=== PATIENT | male | born 1955 | race Caucasian/White ===

== ENCOUNTER 2019-03-13 12:25 | Emergency (ER) | payer SELFPAY ==
[2019-03-13 12:39] VITALS: BP 157/80
[2019-03-13] MEDS ORDERED: KETOROLAC TROMETHAMINE 60 MG/2 ML SDV IM ONE (13:53)
--- NOTE | 2019-03-13 13:55 | ER Document Report ---
HPI - HPI Patient complains to provider of: hip pain Time Seen by Provider: 03/13/19 13:43 Onset: Other Onset/Duration: Persistent, Worse Severity: Severe Pain Level: 5 Context: This 63-year-old male presents emergency department with complaints of right hip pain. Patient gives history of [place] slaughters for over 50 years with bilateral knee pain. Reports his right hip has been hurting for the past 5 months. Reports for the past 5 days he has had pain to his right buttocks down his leg. He denies trauma. 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 Denies fever vomiting diarrhea. Patient reports he has been taking [id number] generic Tylenol for the pain without relief of symptoms. Associated Symptoms: None Exacerbated by: Walking Relieved by: Denies Similar symptoms previously: Yes Recently seen / treated by doctor: No Past Medical History - General Information source: Patient - Social History Smoking Status: Current Every Day Smoker Cigarette use (# per day): Yes Frequency of alcohol use: Occasional Drug Abuse: None Occupation: [employer] Family History: COPD Patient has suicidal ideation: No Patient has homicidal ideation: No - Medical History Medical History: Negative Surgical Hx: Negative Vertical Provider Document - CONSTITUTIONAL Agree With Documented VS: Yes Exam Limitations: No Limitations General Appearance: WD/WN, Mild Distress - Winces when walking - HEENT HEENT: Atraumatic, Normocephalic - NECK Neck: Normal Inspection, Supple - RESPIRATORY Respiratory: Breath Sounds Normal, No Respiratory Distress - CARDIOVASCULAR Cardiovascular: Regular Rate - GI/ABDOMEN Gastrointestinal: Abdomen Soft, Abdomen Non-Tender - BACK Back: Normal Inspection - No obvious deformity no vertebral tenderness complains of pain right above his right buttocks down his right buttock to the back of his leg. No erythema no swelling no warmth - MUSCULOSKELETAL/EXTREMETIES Musculoskeletal/Extremeties: MAEW, FROM, Tender - Complains of right hip pain complains of right knee pain - NEURO Level of Consciousness: Awake, Alert, Appropriate Motor/Sensory: No Motor Deficit - DERM Integumentary: Warm, Dry Course - Re-evaluation Re-evalutation: 03/13/19 13:57 Patient presents emergency department with right-sided hip pain that starts right above his right buttocks through his buttocks and down his right leg. Also reports he has [place] all his life and is hurting more. Reports he is not been to the hospital in over 50 years. 03/13/19 15:26 Hip/Pelvis X-Ray 03/13/19 13:53 IMPRESSION: No acute osseous abnormality of the right hip. Knee X-Ray 03/13/19 13:53 IMPRESSION: Mild medial compartment chondrocalcinosis, a finding typically seen with calcium pyrophosphate deposition disease (CPPD). X-rays negative for acute injury. Patient instructed on chondrocalcinosis. Instructed on muscle relaxers ibuprofen follow-up with orthopedics. Patient reports Toradol helping his pain. He was instructed on the importance of follow-up with orthopedics, return to the ER for concerns. He verbalized understanding to all instructions. - Vital Signs Vital signs: Temp Pulse Resp BP Pulse Ox 90 16 157/80 H 97 03/13/19 12:37 03/13/19 12:37 03/13/19 12:37 03/13/19 12:37 - Diagnostic Test Radiology reviewed: Image reviewed, Reports reviewed Discharge - Discharge Clinical Impression: Right hip pain Sciatica Qualifiers: Laterality: right Qualified Code(s): M54.31 - Sciatica, right side Condition: Stable Disposition: HOME, SELF-CARE Instructions: Ice Packs ([facility]), Muscle Relaxers ([facility]), Sciatica ([facility]), Steroid Medication Injection, Toradol Injection ([facility]) Additional Instructions: *You have been evaluated for right hip and knee pain Your x-ray does not show an acute fracture The x-ray does show chondrocalcinosis, to your right knee *Take medication as prescribed *Rest *Follow up with orthopedics within one week for recheck and evaluation *Return to ED for worsening condition, changes, needs Prescriptions: Cyclobenzaprine HCl [Flexeril 10 Mg Tablet] 10 mg PO TID #15 tablet Ibuprofen [Motrin 800 mg Tablet] 800 mg PO TID #15 tablet Forms: Return to Work Referrals: FABIAN ACOSTA MD [ACTIVE PROVISIONAL STAFF] - Follow up as needed MO ENRIQUEZ MD [NO LOCAL MD] - Follow up as needed [facility] [Provider Group] - Follow up as needed
--- NOTE | 2019-03-13 15:08 | RADIOLOGY REPORT (SQ) ---
EXAM DESCRIPTION: HIP RIGHT AP/LATERAL COMPLETED DATE/TIME: 03/13/2019 3:00 pm REASON FOR STUDY: pain, difficulty walking COMPARISON: None. NUMBER OF VIEWS: Two views. TECHNIQUE: AP pelvis and additional frog-leg view of the right hip. LIMITATIONS: None. FINDINGS: MINERALIZATION: Normal. RIGHT HIP: No fracture or dislocation. No worrisome bone lesions. LEFT HIP: No fracture or dislocation. No worrisome bone lesions. PUBIS AND ISCHIUM: No fracture. PELVIS: No fracture. SACRUM: No fracture or dislocation. No worrisome bone lesions. LOWER LUMBAR SPINE: No fracture or dislocation. No worrisome bone lesions. No significant disc disea se. SOFT TISSUES: No findings. OTHER: No other significant finding. IMPRESSION: No acute osseous abnormality of the right hip. TECHNICAL DOCUMENTATION: JOB ID: [id number] [employer]- All Rights Reserved Reading location - IP/workstation name: [employer] [email or web address]
--- NOTE | 2019-03-13 15:10 | RADIOLOGY REPORT (SQ) ---
EXAM DESCRIPTION: KNEE RIGHT 4 VIEWS COMPLETED DATE/TIME: 03/13/2019 3:01 pm REASON FOR STUDY: pain, difficulty walking COMPARISON: None. NUMBER OF VIEWS: Four views. TECHNIQUE: AP, lateral, and both oblique radiographic images acquired of the right knee. LIMITATIONS: None. FINDINGS: MINERALIZATION: Normal. BONES: No acute fracture or dislocation. No worrisome bone lesions. JOINT: No effusion. Mild medial compartment chondrocalcinosis. SOFT TISSUES: No soft tissue swelling. No radio-opaque foreign body. OTHER: Vascular calcifications. IMPRESSION: Mild medial compartment chondrocalcinosis, a finding typically seen with calcium pyropho sphate deposition disease (CPPD). TECHNICAL DOCUMENTATION: JOB ID: [id number] [employer]- All Rights Reserved Reading location - IP/workstation name: [email or web address]
[2019-03-13] MEDS ORDERED: DEXAMETHASONE SOD PHOS INJ 10 MG/1 ML VIAL IM ONE (15:31)
== END 2019-03-13 16:07 | disposition home or self-care (01) ==
LOC: ER 12:25
DX: M54.31 Sciatica, right side (principal); M25.551 Pain in right hip; M25.562 Pain in left knee; M25.561 Pain in right knee; F17.210 Nicotine dependence, cigarettes, uncomplicated
CPT/HCPCS: 99283; 96372; 73502; 73564; J1885; J1100